=== PATIENT | female | born 1955 | race Caucasian/White ===

== ENCOUNTER 2024-05-12 06:29 | Day surgery (SDC) | payer MEDICARE, OTHER, SELFPAY ==
[2024-05-12 10:30] VITALS: BMI 23.0
[2024-05-12 10:32] VITALS: BMI 23.0
[2024-05-12 10:33] VITALS: BP 137/82
[2024-05-12 11:48] VITALS: BP 101/71
[2024-05-12 12:00] VITALS: BP 121/75
[2024-05-12 12:15] VITALS: BP 124/90
== END 2024-05-12 12:31 | disposition home or self-care (01) ==
LOC: SDS 06:29
PROVIDERS: ATTENDING PHYSICIAN Internal Medicine Gastroenterology; FAMILY PHYSICIAN Student in an Organized Health Care Education/Training Program
DX: Z12.11 Encounter for screening for malignant neoplasm of colon (principal); D12.2 Benign neoplasm of ascending colon; K57.30 Diverticulosis of large intestine without perforation or abscess without bleeding; K64.8 Other hemorrhoids; K22.89 Other specified disease of esophagus; K31.89 Other diseases of stomach and duodenum; K21.00 Gastro-esophageal reflux disease with esophagitis, without bleeding; K22.2 Esophageal obstruction; K44.9 Diaphragmatic hernia without obstruction or gangrene; R12 Heartburn; Z86.010 Personal history of colon polyps
CPT/HCPCS: 45380; 43239; 88305